=== PATIENT | female | born 2000 | race Caucasian/White ===

== ENCOUNTER 2022-12-29 11:46 | Emergency (ER) | payer SELFPAY | END 2022-12-29 13:25 | disposition home or self-care (01) | LOC: NAV ERS 11:46 | DX: S90.01XA Contusion of right ankle, initial encounter (principal); J45.909 Unspecified asthma, uncomplicated; F17.290 Nicotine dependence, other tobacco product, uncomplicated; X58.XXXA Exposure to other specified factors, initial encounter ==